=== PATIENT | male | born 1950 | race Two or more races ===

== ENCOUNTER 2016-12-02 06:37 | Day surgery (SDC) | payer MEDICARE, MEDICAID ==
[2016-12-02] VITALS (13 sets, daily range): BP systolic 105–139; BP diastolic 55–65; PULSE 58–87; RESP 10–19; Ht 162.6 cm; Wt 72.0 kg
[~2016-12-02] VITALS: Ht 162.6 cm; Wt 72.0 kg
[2016-12-02] MEDS ORDERED: EPHEDrine SULFATE 50 MG/5 ML SYG ONE (07:00)
[2016-12-02] MEDS ORDERED: LIDOCAINE 1% (MDV) 20 ML INJ ONE (07:00)
[2016-12-02] MEDS ORDERED: ATROPINE 1 MG/10 ML SYRINGE ONE (07:00)
[2016-12-02] MEDS ORDERED: CEFAZOLIN 1 GM INJ ONE (07:00)
[2016-12-02] MEDS ORDERED: LACTATED RINGER'S 1,000 ML IV SCH ×2 (08:30→09:19)
[2016-12-02] MEDS ORDERED: FENTAnyl 50 MCG/ML VIAL ONE (08:57)
[2016-12-02] MEDS ORDERED: MIDAZOLAM 1 MG/ML 2 ML INJ ONE (08:57)
[2016-12-02] MEDS ORDERED: PROPOFOL 20 ML ONE (08:57)
--- NOTE | 2016-12-02 09:19 | HPN ---
Date/Time of Note Date/Time of Note DATE: 12/02/16 TIME: 09:19 Interval H&P Admission Note Pt. seen H&P reviewed: No system changes JACOBO ARORA DPM Dec 02, 2016 09:19
[2016-12-02] MEDS ORDERED: HYDROCODONE/APAP (10/325) TAB PO PRN (09:30)
[2016-12-02] MEDS ORDERED: ONDANSETRON (ODT) 4 MG TAB ODT PRN (09:30)
[2016-12-02] MEDS ORDERED: CEFAZOLIN 1 GM/50 ML (PMX) 50 ML IVPB ONE (09:30)
[2016-12-02] MEDS ORDERED: CEFAZOLIN 1 GM/50 ML (PMX) 50 ML IVPB SCH (09:30)
[2016-12-02] MEDS ORDERED: BUPIVACAINE 0.5% (SDV) 30 ML INJ ONE (09:42)
[2016-12-02] MEDS ORDERED: POLYMYXIN/BACITRACIN 1L IRRIG ONE (09:42)
[2016-12-02] MEDS ORDERED: BACITRACIN 50000 UNITS INJ ONE (09:55)
[2016-12-02] MEDS ORDERED: POLYMYXIN B 500000 UNIT INJ ONE (09:56)
[2016-12-02] MEDS ORDERED: METOCLOPRAMIDE 10 MG INJ ONE (10:30)
[2016-12-02] MEDS ORDERED: ONDANSETRON 4 MG INJ ONE (10:30)
[2016-12-02] MEDS ORDERED: FAMOTIDINE 20 MG INJ ONE (10:31)
[2016-12-02] MEDS ORDERED: PHENYLephrine (100 MCG/ML) 5ML SYG ONE (10:34)
[2016-12-02] MEDS ORDERED: ACETAMINOPHEN 1000MG/100ML IV 100 ML IVPB ONE (11:00)
[2016-12-02] MEDS ORDERED: HYDROmorphONE (0.2 MG/ML) 10ML SYG IV ONE (11:00)
[2016-12-02] MEDS ORDERED: HYDROmorphONE (0.2 MG/ML) 10ML SYG IV PRN (11:00)
[2016-12-02] MEDS ORDERED: hydrALAzine 20 MG INJ IV PRN (11:00)
--- NOTE | 2016-12-02 11:49 | OPR ---
DATE OF OPERATION: 12/02/2016 PREOPERATIVE DIAGNOSIS: Osteomyelitis and ulceration of the right plantar aspect. POSTOPERATIVE DIAGNOSIS: Osteomyelitis and osteomyelitis and ulceration of the right plantar aspect . ANESTHESIA: General. OPERATION: The patient was brought into the OR and approximately 10 mL of 0.5% plain Marcaine was a dministered circumferentially around the ulceration on the right foot. The area was prepped and annie ped in the usual sterile fashion. Attention was directed to the plantar aspect of the right foot. Utilizing a #15 blade, a semi-elliptical incision was perforated circumferentially around the ulcera tive area. The scar tissue and thickened tissue is removed in toto. A culture is taken of aerobic and anaerobic deep. Deepening the incision with a #15 blade incision, the scar tissue was removed i n toto. There is a sharp area of bone noted to the distal aspect of the ulceration. This was gerald hed down with a rasp and debrided with a rongeur. The surgical site was then copiously lavaged with a Versajet containing antibiotic solution. After utilizing 1000 mL of solution to lavage the area, a second culture was taken for aerobic and anaerobic. The surgical site seemed free of debris. Th ere was no drainage, no ascending cellulitis noted from the region. After the copious lavage, an al lograft was applied over the region to reduce infection, reduce inflammation and expedite healing. The surgical site was then coapted with 2-0 Vicryl suture and also with a 3-0 nylon suture. The latrell rniquet was released and it was elevated to approximately 250 mmHg, but then released to normoactive hyperemia of the right leg and foot. A dressing of Adaptic, 4 x 4's, rolled gauze and Coban was ap plied to the region. This patient tolerated the procedure well and left the room in stable conditio n. It also should be noted that 1 gram Ancef was used prior to tourniquet inflation. Dictated By: JACOBO ARORA MD RS/VIELKA Conf#: [id number] DID#: [id number]
--- NOTE | 2016-12-02 12:36 | RADRPT ---
PROCEDURE: XR Right Foot. CLINICAL INDICATION: Right foot pain. Postop. TECHNIQUE: Three views. Frontal, lateral, and oblique. COMPARISON: None. 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 Gas is present in the soft tissues related to t he recent surgery. Vascular calcifications are present consistent with atherosclerosis. Articular surfaces are intact. There is no lytic or blastic lesion. There is no radiopaque foreign body. IMPRESSION: 1. Amputation through the tarsal bones. 2. No lytic lesion visualized. RPTAT: QQ .Nikolai Trejo MD, MD Date Time Electronically viewed and signed by .Nikolai Trejo MD, MD on 12/02/2016 12:35 .R/
== END 2016-12-02 14:30 | disposition home or self-care (01) ==
LOC: SDS 06:37
PROVIDERS: ATTEND Podiatrist Foot & Ankle Surgery
DX: L97.414 Non-pressure chronic ulcer of right heel and midfoot with necrosis of bone (principal); E11.621 Type 2 diabetes mellitus with foot ulcer; M86.8X7 Other osteomyelitis, ankle and foot; I12.9 Hypertensive chronic kidney disease with stage 1 through stage 4 chronic kidney disease, or unspecified chronic kidney disease; N18.3 Chronic kidney disease, stage 3 (moderate); N40.0 Benign prostatic hyperplasia without lower urinary tract symptoms; I50.30 Unspecified diastolic (congestive) heart failure; E11.40 Type 2 diabetes mellitus with diabetic neuropathy, unspecified; Z79.82 Long term (current) use of aspirin
CPT/HCPCS: 11044; 73630; 82962; 87070; 87075; 88304; 88311; J0131; J0461; J0690; J2250; J2370; J2405; J2765; J3010; Q4131; J1170

== ENCOUNTER 2017-10-09 12:48 | Emergency (ER) | END 2017-10-09 18:30 | disposition home or self-care (01) ==

== ENCOUNTER 2018-03-30 13:41 | Emergency (ER) | END 2018-03-30 16:50 | disposition home or self-care (01) ==